=== PATIENT | male | born 1970 | race Caucasian/White ===

== ENCOUNTER 2020-06-21 09:52 | Emergency (ER) | payer OTHER, MEDICARE ==
[~2020-06-21] VITALS: Ht 180.3 cm; Wt 90.7 kg
[~2020-06-21 09:52] MED LIST: ACYC800 PO; AMLO5 PO; ARIP10 PO; ASPI325 PO; ATOR10 PO; CARV25 PO; CARV6.25 PO; CITA20 PO; CLON1 PO; CLOP75 PO; HYDACE5 PO; HYDACE5325 PO; IBUHYD PO; Imuran50 MG PO; Isosorbide Mono30 MG PO; KETO10 PO; LISI20 PO; LORTAB 7.5-3251 EACH PO; METO50ER PO; NAPR500 PO; NITR.4SL SL; Norco 10-325 T1 EACH PO; Norco 5-325 Ta1 EACH PO; PANT40 PO; PARO20 PO; [UNRECOGNIZED DRUG - REMARK]
[2020-06-21] MEDS ORDERED: IBUP800 PO (11:20)
== END 2020-06-21 11:26 | disposition home or self-care (01) ==
LOC: ER 09:52
DX: S16.1XXA Strain of muscle, fascia and tendon at neck level, initial encounter (principal); S29.012A Strain of muscle and tendon of back wall of thorax, initial encounter; Z88.5 Allergy status to narcotic agent; Z79.899 Other long term (current) drug therapy; Z79.02 Long term (current) use of antithrombotics/antiplatelets; Z79.82 Long term (current) use of aspirin; V49.40XA Driver injured in collision with unspecified motor vehicles in traffic accident, initial encounter; Y92.410 Unspecified street and highway as the place of occurrence of the external cause
CPT/HCPCS: 71046; 73030; 99284-25

== ENCOUNTER 2021-01-25 15:43 | Inpatient (IN) | payer MEDICARE ==
[~2021-01-25] VITALS: Ht 180.3 cm; Wt 93.4 kg
[~2021-01-25 15:43] MED LIST changes: +IBUP800 PO
[2021-01-25 16:17] LABS: BASOPHILS ABSOLUTE AUTO 0.08 K/mm3 (0.00-0.23); BASOPHILS PERCENT AUTO 1 % (0-2); EOSINOPHILS ABSOLUTE AUTO 0.14 K/mm3 (0.00-0.68); EOSINOPHILS PERCENT AUTO 1 % (0-6); Hematocrit 49.3 % (37.0-53.0); Hemoglobin 17.5 g/dL (13.5-17.5); IMMATURE GRAN ABSOLUTE AUTO 0.02 K/mm3 (0.00-0.10); IMMATURE GRAN PERCENT AUTO 0 % (0-1); LYMPHOCYTES ABSOLUTE AUTO 2.66 K/mm3 (0.84-5.20); LYMPHOCYTES PERCENT AUTO 25 % (21-46); MONOCYTES ABSOLUTE AUTO 1.01 K/mm3 (0.16-1.47); MONOCYTES PERCENT AUTO 10 % (4-13); Mean Corpuscular HGB 31.3 pg (26.0-34.0); Mean Corpuscular HGB Conc 35.5 g/dL (31.5-36.5); Mean Corpuscular Volume 88 fL (80-100); Mean Platelet Volume 9.4 fL (9.1-12.4); NEUTROPHILS ABSOLUTE AUTO 6.62 K/mm3 (1.96-9.15); NEUTROPHILS PERCENT AUTO 63 % (41-73); Platelet Count 256 K/mm3 (150-400); RDW Standard Deviation 44.5 fL (35.1-46.3); White Blood Cell Count 10.53 K/mm3 (4.00-11.30)
[2021-01-25 16:44] LABS: Alanine Aminotransfer (ALT/SGP 46 U/L (12-78); Alk Phos 76 U/L (50-136); Anion Gap 4 mmol/L (6-16); Aspartate Aminotrans (AST/SGOT 63 U/L (12-37); Bilirubin, Total 0.4 mg/dL (0.1-1.0); Blood Urea Nitrogen 13 mg/dL (8-24); Bun/Creatinine Ratio 11.6 (12.0-20.0); CO2, Blood 26 mmol/L (21-32); Calcium, Blood 9.2 mg/dL (8.5-10.1); Chloride, Blood 109 mmol/L (98-108); Creatinine, Blood 1.12 mg/dL (0.60-1.20); Globulin, Blood 3.9 g/dL (2.2-4.0); Glomerular Filtration Rate >60 (60-); Glucose, Blood 98 mg/dL (70-99); Potassium, Blood 3.8 mmol/L (3.5-5.5); Sodium, Blood 139 mmol/L (136-145); Total Protein, Blood 7.9 g/dL (6.4-8.2)
[2021-01-25 18:31] LABS: Anti-Xa UFH, PHA Monitoring <0.10 IU/mL; International Normalized Ratio 0.96; Prothrombin Time Results 10.1 Sec (9.7-11.5)
[2021-01-25 18:54] LABS: Influenza A, PCR NEGATIVE (NEGATIVE); Influenza B, PCR NEGATIVE (NEGATIVE); Resp Syncytial Virus, PCR NEGATIVE (NEGATIVE); SARS-Cov-2 (COVID-19) PCR, MMC NEGATIVE (NEGATIVE)
--- NOTE | 2021-01-25 21:18 | NUR ---
2109 PT ARRIVED ON UNIT, VSS, TELE SHOWS SR, ORIENTED TO ROOM AND CALL SCHROEDER SYSTEM. MILTON BIANCHI
[2021-01-26 01:39] LABS: Creatine Kinase MB 41.8 ng/mL (0.0-3.6); Creatine Kinase MB Index 6.8 (0.0-4.0)
[2021-01-26 01:42] LABS: Troponin I 32.1 ng/mL (0.000-0.040)
--- NOTE | 2021-01-26 01:43 | NUR ---
0143 LAB RESULTED CRITICAL HIGH TROPONIN OF 33.1, PER CN, PT ON HEPARIN GTT AND CARDIAC CATH PENDING AM, NO NEED TO CALL WITH CRITICAL HIGH CALUE. MILTON BIANCHI
[2021-01-26 02:12] LABS: Hematocrit 44.9 % (37.0-53.0); Mean Corpuscular HGB 31.5 pg (26.0-34.0); Mean Corpuscular HGB Conc 35.6 g/dL (31.5-36.5); Mean Corpuscular Volume 88 fL (80-100); Mean Platelet Volume 9.2 fL (9.1-12.4); Platelet Count 242 K/mm3 (150-400); RDW Standard Deviation 45.2 fL (35.1-46.3); Red Blood Cell Count 5.08 M/mm3 (4.30-5.90); White Blood Cell Count 10.95 K/mm3 (4.00-11.30)
[2021-01-26 03:08] LABS: Alanine Aminotransfer (ALT/SGP 46 U/L (12-78); Albumin, Blood 3.6 g/dL (3.4-5.0); Albumin/Globulin Ratio 1.2 (0.8-1.8); Alk Phos 64 U/L (50-136); Anion Gap 8 mmol/L (6-16); Aspartate Aminotrans (AST/SGOT 86 U/L (12-37); Bilirubin, Total 0.7 mg/dL (0.1-1.0); Blood Urea Nitrogen 11 mg/dL (8-24); Bun/Creatinine Ratio 11.7 (12.0-20.0); CHOL/HDL RATIO 5.5; CO2, Blood 25 mmol/L (21-32); Calcium, Blood 8.9 mg/dL (8.5-10.1); Chloride, Blood 109 mmol/L (98-108); Cholesterol 213 mg/dL (50-200); Creatinine, Blood 0.94 mg/dL (0.60-1.20); Globulin, Blood 3.1 g/dL (2.2-4.0); Glomerular Filtration Rate >60 (60-); Glucose, Blood 103 mg/dL (70-99); HDL Cholesterol 39 mg/dL (>39); LDL/HDL RATIO 3.9; Low Density Lipoprotein Chol 152 mg/dL (0-110); Magnesium, Blood 1.9 mg/dL (1.6-2.4); Potassium, Blood 3.6 mmol/L (3.5-5.5); Sodium, Blood 142 mmol/L (136-145); Total Protein, Blood 6.7 g/dL (6.4-8.2); Triglycerides 109 mg/dL (30-160); Very Low Density Lipoprot Chol 21 mg/dL (6-32)
[2021-01-26 09:01] LABS: Creatine Kinase MB 28.4 ng/mL (0.0-3.6); Creatine Kinase MB Index 5.5 (0.0-4.0)
[2021-01-26 09:03] LABS: Troponin I 25.1 ng/mL (0.000-0.040)
--- NOTE | 2021-01-26 11:21 | NUR ---
Echocardiogram completed.
--- NOTE | 2021-01-26 17:26 | NUR ---
SHIFT SUMMARY: PT CONTINUES A&Ox4 T/OUT THE DAY, MAINTAINING O2 SATS >93% ON RA, SR ON MONITOR. PT S/P ANGIO W/TWO STENTS PLACED, PT RETURNS TO PCU ROOM APPROX 1620 W/16 CC AIR TO R RADIAL SITE, SITE WNL AND NO SIGNS OF HEMATOMA, TR BAND CONTINUES FULLY INFLATED AT THIS TIME. PT CONTINUES TO DENY CHEST PAIN/PRESSURE. WILL CONTINUE TO MONITOR AND TREAT ACCORDINGLY UNTIL CHANGE OF SHIFT.
[2021-01-27] MEDS ORDERED: ASPI81CH PO (09:24)
[2021-01-27] MEDS ORDERED: LIPITOR80 MG PO (09:25)
[2021-01-27] MEDS ORDERED: CLOP75 PO (09:25)
[2021-01-27] MEDS ORDERED: LISI5 PO (09:26)
[2021-01-27] MEDS ORDERED: METO25 PO (09:27)
[2021-01-27] MEDS ORDERED: PANT40 PO (09:28)
[2021-01-27] MEDS ORDERED: NITR.4SL SL (09:28)
--- NOTE | 2021-01-27 11:49 | NUR ---
DISCHARGE SUMMARY: PATIENT WAS PROVIDED THROUGH DISCHARGE INSTRUCTIONS ON MEDICATION ADHERENCE, RADIAL SITE CARE, SYMPTOMS OF HYPOTENSION, AND DISEASE PROCESS. PATIENT HAD CLEAR UNDERSTANDING OF SITUATION AND IMPORTANCE OF MEDICATION ADHERENCE. PATIENT WAS WALKED TO 'S VEHICLE WITH NO FURTHER QUESTIONS COMMENTS OR CONCERNS. PATIENT DENEIES CHEST PAIN OR PRESSURE, SOB, OR DIFFICULTY WITH EXERTION WITH WALKING.
== END 2021-01-27 10:26 | disposition home or self-care (01) | DRG 247 ==
LOC: ER 15:43 → PCU 17:33 → ERHOLD 17:33 → PCU 21:03
PROVIDERS: Physician Assistant; Student in an Organized Health Care Education/Training Program; ADMIT Internal Medicine
PROC: 4A023N7 Measurement of Cardiac Sampling and Pressure, Left Heart, Percutaneous Approach (ICD-10-PCS; principal; 2021-01-26)
PROC: 027135Z Dilation of Coronary Artery, Two Arteries with Two Drug-eluting Intraluminal Devices, Percutaneous Approach (ICD-10-PCS; 2021-01-26)
PROC: B2111ZZ Fluoroscopy of Multiple Coronary Arteries using Low Osmolar Contrast (ICD-10-PCS; 2021-01-26)
PROC: 4A033BC Measurement of Arterial Pressure, Coronary, Percutaneous Approach (ICD-10-PCS; 2021-01-26)
DX: I21.4 Non-ST elevation (NSTEMI) myocardial infarction (principal); I10 Essential (primary) hypertension; E78.5 Hyperlipidemia, unspecified; G47.33 Obstructive sleep apnea (adult) (pediatric); F32.A Depression, unspecified; Z20.822 Contact with and (suspected) exposure to COVID-19; K21.9 Gastro-esophageal reflux disease without esophagitis; F17.210 Nicotine dependence, cigarettes, uncomplicated; I25.10 Atherosclerotic heart disease of native coronary artery without angina pectoris; E66.9 Obesity, unspecified; I25.2 Old myocardial infarction; Z95.5 Presence of coronary angioplasty implant and graft; Z88.5 Allergy status to narcotic agent; Z98.890 Other specified postprocedural states
CPT/HCPCS: 0241U; 36415; 71045; 80053; 80061; 82550; 82553; 83036; 83735; 83880; 84484; 85025; 85027; 85347; 85520; 85610; 85730; 93005; 93010; 93306; 93454; 93571; 93572; 94760; 96365; 96375; 96376; 99152; 99153; 99285-25; A9270; C1725; C1769; C1874; C1887; C1894; C9600; C9601; J0461; J1644; J2250; J2270; J2370; J3010; J7030; J7040; J7050; Q9967

== ENCOUNTER 2022-03-26 06:51 | Emergency (ER) | payer MEDICARE ==
[~2022-03-26] VITALS: Ht 182.9 cm; Wt 90.7 kg
[~2022-03-26 06:51] MED LIST changes: +ASPI81CH PO; +LIPITOR80 MG PO; +LISI5 PO; +METO25 PO
[2022-03-26] MEDS ORDERED: Norco 5-325 Ta1 EACH PO (08:12)
[2022-03-26] MEDS ORDERED: Amoxicillin500 MG PO (08:12)
== END 2022-03-26 08:21 | disposition home or self-care (01) ==
LOC: ER 06:51
DX: K04.7 Periapical abscess without sinus (principal); I10 Essential (primary) hypertension; F17.210 Nicotine dependence, cigarettes, uncomplicated; Z88.5 Allergy status to narcotic agent
CPT/HCPCS: 99282